=== PATIENT | female | born 1980 | race Caucasian/White ===

== ENCOUNTER 2020-11-11 22:50 | Emergency (ER) | payer MEDICAID, OTHER ==
[~2020-11-11] VITALS: Ht 152.4 cm; Wt 52.0 kg
[~2020-11-11 22:50] MED LIST: ONDA4TAB6 PO
[2020-11-11 23:04] VITALS: BP 129/86
== END 2020-11-12 02:45 | disposition left against medical advice (07) ==
LOC: ER 22:51
DX: K08.89 Other specified disorders of teeth and supporting structures (principal); Z53.21 Procedure and treatment not carried out due to patient leaving prior to being seen by health care provider